=== PATIENT | male | born 1955 ===

== ENCOUNTER 2025-05-17 05:20 | Day surgery (SDC) | payer OTHER ==
[2025-05-09 08:14] LABS: BASO % 1.2 % (0.1-1.2); EOS # 0.45 (0.04-0.54); EOS % 5.1 % (0.7-7.0); LYMPH # 1.52 (1.18-3.74); LYMPH % 17.1 % (19.3-53.1); MEAN PLATELET VOLUME 11.50 fl (9.4-12.4); MONO # 0.78 (0.24-0.82); MONO % 8.8 % (4.7-12.5); NEUT # 6.00 (1.56-6.13); NEUT % 67.5 % (34.0-71.1); RED CELL DISTRIBUTION WIDTH 13.8 % (11.6-14.4)
[2025-05-09 08:15] LABS: URINE APPEARANCE Clear; URINE BILIRRUBIN Negative (NEGATIVE); URINE BLOOD Small; URINE COLOR Yellow; URINE GLUCOSE Negative (NEGATIVE); URINE KETONE Negative (NEGATIVE); URINE LEUKOCYTE Negative; URINE NITRATE Negative; URINE PROTEIN Negative (NEGATIVE); URINE UROBILINOGEN 0.2 E.U./dl
[2025-05-09 08:19] LABS: URINE RBC 12.9 uL (0.0-20.8); URINE WBC 2.6 uL (0.0-23.2)
[2025-05-09 08:30] VITALS: BP 144/72
[2025-05-09 08:31] LABS: INR 1.02
[2025-05-09 08:39] LABS: URINE BACTERIA 3.5 uL (0.0-1933); URINE CAST 0.29 uL (0.0-1.40); URINE EPITHELIAL CELLS 0.6 uL (0.0-38.8)
[2025-05-09 09:13] LABS: ALT/SGPT 30.0 U/L (12-78); AST/SGOT 19.0 U/L (15-37); BILIRUBIN TOTAL 0.41 mg/dL (0.3-1.2); BUN CREA RATIO 15.0 (7.0-25.0); CREATININE SERUM 1.37 mg/dL (0.70-1.30); GFR 51.83; GLOBULINA 3.7 G/DL (2.4-3.5); GLUCOSE FASTING 111.0 mg/dL (65-100); OSMOLALITY SERUM 288.0 MOSM/KG (275-295)
[~2025-05-17] VITALS: Ht 177.8 cm; Wt 88.5 kg
[~2025-05-17 05:20] MED LIST: HYDRODIURIL12.5 MG PO; LEVOTHYROXINE25 MCG PO; LIPITOR20 MG; ZESTRIL40 M1 PO
[2025-05-17] MEDS ORDERED: CEFAZOLIN SODIUM 1,000 MG VIAL IV ONE (09:15)
[2025-05-17] MEDS ORDERED: LIDOCAINE HCL 1%/EPINEPHRINE 20ML VIAL IJ ONE (09:15)
[2025-05-17] MEDS ORDERED: BUPIVACAINE HCL/PF 0.25% 30ML VIAL InF ONE (09:30)
[2025-05-17] MEDS ORDERED: TYLENOL ARTHRI650 MG PO (10:52)
[2025-05-17] MEDS ORDERED: MIRALAX17 GM PO (10:52)
[2025-05-17] MEDS ORDERED: TRAMADOL HCL50 MG PO (10:52)
[2025-05-17] MEDS ORDERED: KETO10TA2 PO (10:52)
[2025-05-17] MEDS ORDERED: MORPHINE SULFATE 4 MG/ML VIAL IV ONE ×2 (11:15→12:15)
== END 2025-05-17 15:10 | disposition home or self-care (01) ==
LOC: CIR.AMB 05:20
PROVIDERS: ATTEND Surgery
DX: K40.20 Bilateral inguinal hernia, without obstruction or gangrene, not specified as recurrent (principal); K42.0 Umbilical hernia with obstruction, without gangrene
CPT/HCPCS: 49650; 49592; C1781